=== PATIENT | male | born 1995 | race Caucasian/White ===

== ENCOUNTER 2017-05-29 05:22 | Emergency (ER) | payer OTHER ==
[~2017-05-29] VITALS: Ht 182.9 cm; Wt 79.4 kg
[2017-05-29 05:26] VITALS: BP 147/90
--- NOTE | 2017-05-29 05:33 | NUR ---
TO ER BED 5
--- NOTE | 2017-05-29 05:45 | NUR ---
Patient being evaluated by Dr. Gray at bedside.
--- NOTE | 2017-05-29 05:45 | NUR ---
21/M c/o fever and sore throat x2 days. Afebrile upon arrival. Pt c/o /10 pain. Worsening pain with swallowing. AOX4, clear speech, no drooling noted. Denies SOB. VSS. No distress noted. Mother at bedside.
--- NOTE | 2017-05-29 05:55 | NUR ---
Patient discharged with v/s stable. Written and verbal after care instructions given and explained. Patient alert, oriented and verbalized understanding of instructions. Ambulatory with steady gait. All questions addressed prior to discharge. ID band removed. Patient advised to follow up with PMD. Rx of Tylenol Extra Strength 500mg and Amoxcillin 500mg given. Patient educated on indication of medication including possible reaction and side effects. Opportunity to ask questions provided and answered.
[2017-05-29 05:56] VITALS: BP 147/90
== END 2017-05-29 05:56 | disposition home or self-care (01) ==
LOC: MED 05:22
DX: J03.80 Acute tonsillitis due to other specified organisms (principal); R03.0 Elevated blood-pressure reading, without diagnosis of hypertension; R11.10 Vomiting, unspecified
CPT/HCPCS: 99283

== ENCOUNTER 2018-05-25 12:02 | Emergency (ER) | payer OTHER ==
[~2018-05-25] VITALS: Ht 182.9 cm; Wt 81.6 kg
[2018-05-25 12:04] VITALS: BP 154/88
--- NOTE | 2018-05-25 12:15 | NUR ---
22/M BIB mother w/ c/o sore throat ,DENIES COUGH x 5 days. Pt was seen at urgent care on saturday and streo was negative. per pt, the pain has persisted and has now spear to his right ear. 10/10 pain. denies taking pain medication today. Taking amoxicillin from urgent care. reports he has not been able to eat/drink. Inflammation noted to the tonsils. no white patches noted at this time. DENIES N/V/D; SKIN IS PINK/WARM/DRY; AAOX4 WITH EVEN AND STEADY GAIT; LUNGS CLEAR BL. PT DENIES ANY FEVER, CP, SOB, OR COUGH AT THIS TIME; PATIENT STATES PAIN OF 10/10 AT THIS TIME. PATIENT POSITIONED FOR COMFORT; HOB ELEVATED; BEDRAILS UP X2; BED DOWN. ER MD MADE AWARE OF PT STATUS.
--- NOTE | 2018-05-25 12:23 | NUR ---
Patient being evaluated by DR HUNT at bedside.
[2018-05-25] MEDS ORDERED: ALBUTEROL SULFATE/IPRATROPIU 3 ML SOL IH ONE (12:30)
[2018-05-25] MEDS ORDERED: CLINDAMYCIN 600 MG/4 ML VIAL IM ONE (12:30)
[2018-05-25] MEDS ORDERED: DEXAMETHASONE 10 MG/ML VIAL IM ONE (12:30)
[2018-05-25 13:00] VITALS: BP 132/77
--- NOTE | 2018-05-25 13:00 | NUR ---
Patient discharged with v/s stable. Written and verbal after care instructions given and explained. Patient alert, oriented and verbalized understanding of instructions. Ambulatory with steady gait. All questions addressed prior to discharge. ID band removed. Patient advised to follow up with PMD. Rx of CLINDAMYCIN & PREDNISONE given. Patient educated on indication of medication including possible reaction and side effects. Opportunity to ask questions provided and answered.
== END 2018-05-25 13:00 | disposition home or self-care (01) ==
LOC: MED 12:02
DX: J03.90 Acute tonsillitis, unspecified (principal); F12.10 Cannabis abuse, uncomplicated
CPT/HCPCS: 94640; 96372; 99284; J1100; J3490; J7620